=== PATIENT | male | born 1950 | race Caucasian/White ===

== ENCOUNTER 2022-06-08 15:33 | Emergency (ER) | payer OTHER ==
[~2022-06-08] VITALS: Ht 188 cm; Wt 75.7 kg
[2022-06-08 18:12] LABS: HEMOGLOBIN 14.2 gm/dl (14.0-17.5); RED BLOOD COUNT 4.55 M/UL (4.20-5.50); WHITE BLOOD COUNT 10.3 K/UL (4.5-11.0)
[2022-06-08 18:37] LABS: BUN/CREATININE RATIO 14 (0-10)
== END 2022-06-09 08:55 | disposition short-term general hospital (02) ==
LOC: ER1 15:33
PROVIDERS: Physician Assistant
DX: R07.81 Pleurodynia (principal); R91.8 Other nonspecific abnormal finding of lung field; C80.1 Malignant (primary) neoplasm, unspecified; C79.51 Secondary malignant neoplasm of bone; K63.89 Other specified diseases of intestine; I10 Essential (primary) hypertension; E89.2 Postprocedural hypoparathyroidism; Z20.822 Contact with and (suspected) exposure to COVID-19
CPT/HCPCS: 80053; 81001; 82550; 82553; 83690; 84484; 85025; 93005; 96361; 96374; 96376; 99285; J2405; Q9967; U0002